=== PATIENT | male | born 1965 | race Caucasian/White ===

== ENCOUNTER 2017-06-25 11:58 | Emergency (ER) | payer BC, OTHER ==
[2017-06-25] MEDS ORDERED: Acetaminophen/HYDROcodone 325-5 MG Tab PO ONE (12:09)
[2017-06-25] MEDS ORDERED: Diphtheria,Pertussis(Acell),Tetanus Vaccine 0.5 ML Syringe IM ONE (12:09)
--- NOTE | 2017-06-25 12:19 | EDM.PDOC ---
ED HPI GENERAL MEDICAL PROBLEM - General Stated Complaint: LEFT FOOT WORK RELATED INJURY Time Seen by Provider: 06/25/17 11:59 Source of Information: Reports: Patient History Limitations: Reports: No Limitations - History of Present Illness INITIAL COMMENTS - FREE TEXT/NARRATIVE: HISTORY AND PHYSICAL: History of present illness: Patient is a 52-year-old male who presents to the emergency room after stepping on a steel bre at work, that had punctured his boot and through his foot prior to arrival. He pulled the bre out per self prior to arrival. He has a puncture wound to the left lateral plantar surface (entrance) of the foot that exited to the top of the foot. Minimal bleeding noted at this time. He is ambulatory and weightbearing. Patient is unsure of his last tetanus booster. No previous injury or surgeries to the affected extremity. Review of systems: As per history of present illness and below otherwise all systems reviewed and negative. Past medical history: As per history of present illness and as reviewed below otherwise noncontributory. Surgical history: As per history of present illness and as reviewed below otherwise noncontributory. Social history: No reported history of drug or alcohol abuse. Family history: As per history of present illness and as reviewed below otherwise noncontributory. Physical exam: General: Nontoxic appearing 52-year-old male. Alert and oriented. Appears in no acute distress. HEENT: Atraumatic, normocephalic, pupils reactive, negative for conjunctival pallor or scleral icterus, mucous membranes moist, throat clear, neck supple, nontender, trachea midline. Lungs: Clear to auscultation, breath sounds equal bilaterally, chest nontender. Heart: S1S2, regular rate and rhythm Abdomen: Soft, nondistended, nontender. Negative for masses or hepatosplenomegaly. Negative for costovertebral tenderness. Pelvis: Stable nontender. Genitourinary: Deferred. Rectal: Deferred. Extremities: Puncture wound noted to the distal lateral plantar surface near the fourth digit (entrance) that appears to have gone straight through to the anterior surface of the foot (exit wound), negative for cords or calf pain. Capillary refill less than 3 seconds. Strong pedal pulse. Neurovascular unremarkable. Neuro: Awake, alert, oriented. Cranial nerves II through XII unremarkable. Cerebellum unremarkable. Motor and sensory unremarkable throughout. Exam nonfocal. Diagnostics: Foot x-ray Therapeutics: Tdap, [place] Bacitracin, nonstick dressing Impression: Foot injury, puncture wound Plan: 1. Please take your antibiotic as prescribed. Keep the wound clean and dry. Monitor for signs of infection as we discussed. 2. Pain medication has been prescribed to you areas do not take this while driving or needing to functioning at work as it may cause drowsiness. During daytime hours he may take Tylenol or ibuprofen as needed. Rest, ice, elevate the extremity over the next couple days to prevent swelling. 3. Follow-up with your primary care provider in the next 1-2 days. Return to the ED as needed and as discussed. Definitive disposition and diagnosis as appropriate pending reevaluation and review of above. Onset: Today Duration: Minutes: Location: Reports: Lower Extremity, Left Left Feet Pain Score (Numeric/FACES): 3 - Related Data Allergies Allergy/AdvReac Type Severity Reaction Status Date / Time No Known Allergies Allergy Verified 06/25/17 12:08 Home Meds: Home Meds Ibuprofen [Advil] 200 mg PO DAILY 06/25/17 [History] Review of Systems - Review of Systems Review Of Systems: ROS reveals no pertinent complaints other than HPI. ED EXAM, GENERAL - Physical Exam Exam: See Below (See dictation) Course - Vital Signs Last Recorded V/S: Last Vital Signs Temp 36.5 C 06/25/17 12:14 Pulse 98 06/25/17 12:14 Resp 18 06/25/17 12:14 BP 130/90 06/25/17 12:14 Pulse Ox 95 06/25/17 12:14 - Orders/Labs/Meds Orders: Active Orders 24 hr Category Date Time Status Communication Order [RC] STAT Care 06/25/17 12:42 Active Communication Order [RC] STAT Care 06/25/17 13:00 Active Vaccines to be Administered [RC] PER UNIT ROUTINE Care 06/25/17 12:09 Active Meds: Medications Discontinued Medications Generic Name Dose Route Start Last Admin Trade Name Freq PRN Reason Stop Dose Admin Hydrocodone Bitart/Acetaminophen 1 tab 06/25/17 12:09 06/25/17 12:20 [place] 325-5 Mg PO 06/25/17 12:10 1 tab ONETIME ONE Administration Bacitracin 1 dose 06/25/17 13:00 Bacitracin Oint 1 Gm TOP 06/25/17 13:01 ONETIME ONE Diphtheria/Tetanus/Acell Pertussis 0.5 ml 06/25/17 12:09 06/25/17 12:19 Adacel IM 06/25/17 12:10 0.5 ml .ONCE ONE Administration Departure - Departure Time of Disposition: 12:58 Disposition: Home, Self-Care 01 Clinical Impression: Puncture wound Injury of foot, left Qualifiers: Encounter type: initial encounter Qualified Code(s): S99.922A - Unspecified injury of left foot, initial encounter - Discharge Information Referrals: PCP,None [Primary Care Provider] - Additional Instructions: My general discharge The following information is given to patients seen in the emergency department who are being discharged to home. This information is to outline your options for follow-up care. We provide all patients seen in our emergency department with a follow-up referral. The need for follow-up, as well as the timing and circumstances, are variable depending upon the specifics of your emergency department visit. If you don't have a primary care physician on staff, we will provide you with a referral. We always advise you to contact your personal physician following an emergency department visit to inform them of the circumstance of the visit and for follow-up with them and/or the need for any referrals to a consulting specialist. The emergency department will also refer you to a specialist when appropriate. This referral assures that you have the opportunity for follow-up care with a specialist. All of these measure are taken in an effort to provide you with optimal care, which includes your follow-up. Under all circumstances we always encourage you to contact your private physician who remains a resource for coordinating your care. When calling for follow-up care, please make the office aware that this follow-up is from your recent emergency room visit. If for any reason you are refused follow-up, please contact the [facility] Emergency Department at and asked to speak to the emergency department charge nurse. [facility] [address] [place] [id number] 1. Please take your antibiotic as prescribed. Keep the wound clean and dry. Monitor for signs of infection as we discussed. 2. Pain medication has been prescribed to you, please do not take this while driving or needing to functioning at work as it may cause drowsiness (it is a narcotic pain medication). During daytime hours you may take Tylenol or ibuprofen as needed. Rest, ice, elevate the extremity over the next couple days to prevent swelling and decrease pain. 3. Follow-up with your primary care provider in the next 1-2 days. Return to the ED as needed and as discussed. - My Orders Last 24 Hours: My Active Orders 06/25/17 12:09 Vaccines to be Administered [RC] PER UNIT ROUTINE 06/25/17 12:42 Communication Order [RC] STAT 06/25/17 13:00 Communication Order [RC] STAT - Assessment/Plan Last 24 Hours: My Active Orders 06/25/17 12:09 Vaccines to be Administered [RC] PER UNIT ROUTINE 06/25/17 12:42 Communication Order [RC] STAT 06/25/17 13:00 Communication Order [RC] STAT
--- NOTE | 2017-06-25 12:57 | CR ---
EXAMINATION: Left foot HISTORY: Pain COMPARISON: None TECHNIQUE: 2 views FINDINGS/IMPRESSION: There is no acute osseous abnormality, dislocation, or fracture. Bone mineraliza tion and joint spaces appear normal. No focal soft tissue swelling.
[2017-06-25] MEDS ORDERED: Bacitracin Oint 1 GM U/D Packet TOP ONE (13:00)
== END 2017-06-25 13:28 | disposition home or self-care (01) ==
LOC: MW.ED 11:58
DX: S91.332A Puncture wound without foreign body, left foot, initial encounter (principal); Z23 Encounter for immunization; W45.8XXA Other foreign body or object entering through skin, initial encounter
CPT/HCPCS: 73620; 90471; 90715; 99283; A9270; 99282

== ENCOUNTER 2018-01-28 12:18 | Emergency (ER) | payer BC ==
[2018-01-28] MEDS ORDERED: Sodium Chloride 0.9% 1,000 ML IV ONE (12:23)
[2018-01-28] MEDS ORDERED: Ondansetron 4 MG/2 ML SDV IVPUSH ONE (12:23)
[2018-01-28] MEDS ORDERED: Ketorolac 30 MG/ML SDV IVPUSH ONE (12:23)
--- NOTE | 2018-01-28 12:25 | EDM.PDOC ---
ED HPI GENERAL MEDICAL PROBLEM - General Chief Complaint: Abdominal Pain Stated Complaint: LEFT SIDE ABDOMINAL AND LOWER BACK PAIN Time Seen by Provider: 01/28/18 12:24 Source of Information: Reports: Patient - History of Present Illness INITIAL COMMENTS - FREE TEXT/NARRATIVE: HISTORY AND PHYSICAL: History of present illness: Patient presents with left-sided abdominal pain radiating to the flank and groin which began acutely one hour prior to arrival no fever nausea vomiting chills sweats [] Review of systems: As per history of present illness and below otherwise all systems reviewed and negative. Past medical history: As per history of present illness and as reviewed below otherwise noncontributory. Surgical history: As per history of present illness and as reviewed below otherwise noncontributory. Social history: No reported history of drug or alcohol abuse. Family history: As per history of present illness and as reviewed below otherwise noncontributory. Physical exam: HEENT: Atraumatic, normocephalic, pupils reactive, negative for conjunctival pallor or scleral icterus, mucous membranes moist, throat clear, neck supple, nontender, trachea midline. Lungs: Clear to auscultation, breath sounds equal bilaterally, chest nontender. Heart: S1S2, regular, negative for clicks, rubs, or JVD. Abdomen: Soft, nondistended, nontender. Negative for masses or hepatosplenomegaly. Negative for costovertebral tenderness. Pelvis: Stable nontender. Genitourinary: Deferred. Rectal: Deferred. Extremities: Atraumatic, negative for cords or calf pain. Neurovascular unremarkable. Neuro: Awake, alert, oriented. Cranial nerves II through XII unremarkable. Cerebellum unremarkable. Motor and sensory unremarkable throughout. Exam nonfocal. Diagnostics: [CBC CMP troponin lipase UA with culture ]CT abdomen pelvis no contrast Therapeutics: [Liter normal saline bolus Zofran 8 mg IV Toradol 30 mg IV ]Morphine 2 mg IV Lyndon Zofran Flomax Impression :2 Millimeter ureteral stone defnitive disposition and diagnosis as appropriate pending reevaluation and review of above. Left Lower abdomen Pain Score (Numeric/FACES): 9 - Related Data Allergies Allergy/AdvReac Type Severity Reaction Status Date / Time No Known Allergies Allergy Verified 01/28/18 12:30 Home Meds: Home Meds Ibuprofen [Advil] 2 tab PO QPM 06/25/17 [History] Past Medical History - Past Health History Medical/Surgical History: Denies Medical/Surgical History Social & Family History - Caffeine Use Caffeine Use: Reports: Coffee, Tea ED ROS GENERAL - Review of Systems Review Of Systems: See Below ED EXAM, GENERAL - Physical Exam Exam: See Below Course - Vital Signs Last Recorded V/S: Last Vital Signs Temp 96.7 F 01/28/18 12:33 Pulse 58 L 01/28/18 12:33 Resp 16 01/28/18 12:33 BP 170/88 H 01/28/18 12:33 Pulse Ox 98 01/28/18 12:33 - Orders/Labs/Meds Orders: Active Orders 24 hr Category Date Time Status CULTURE URINE [RM] Stat Lab 01/28/18 14:05 Received UA W/MICROSCOPIC [URIN] Stat Lab 01/28/18 14:05 Ordered Labs: Laboratory Tests 01/28/18 01/28/18 01/28/18 Range/Units 12:45 12:45 14:05 WBC 7.25 (4.0-11.0) K/uL RBC 5.10 (4.50-5.90) M/uL Hgb 16.0 (13.0-17.0) g/dL Hct 43.8 (38.0-50.0) % MCV 85.9 (80.0-98.0) fL MCH 31.4 (27.0-32.0) pg MCHC 36.5 (31.0-37.0) g/dL RDW Std Deviation 39.6 (28.0-62.0) fl RDW Coeff of Silvio 13 (11.0-15.0) % Plt Count 306 (150-400) K/uL MPV 9.90 (7.40-12.00) fL Neut % (Auto) 53.3 (48.0-80.0) % Lymph % (Auto) 35.4 (16.0-40.0) % [place] % (Auto) 8.4 (0.0-15.0) % Eos % (Auto) 2.6 (0.0-7.0) % Baso % (Auto) 0.3 (0.0-1.5) % Neut # (Auto) 3.9 (1.4-5.7) K/uL Lymph # (Auto) 2.6 H (0.6-2.4) K/uL [place] # (Auto) 0.6 (0.0-0.8) K/uL Eos # (Auto) 0.2 (0.0-0.7) K/uL Baso # (Auto) 0.0 (0.0-0.1) K/uL Nucleated RBC % 0.0 /100WBC Nucleated RBCs # 0 K/uL Sodium 141 (136-148) mmol/L Potassium 3.8 (3.5-5.1) mmol/L Chloride 107 (98-107) mmol/L Carbon Dioxide 25.5 (21.0-32.0) mmol/L BUN 24 H (7.0-18.0) mg/dL Creatinine 1.2 (0.8-1.3) mg/dL Est Cr Clr Drug Dosing 71.82 mL/min Estimated GFR (MDRD) > 60.0 ml/min Glucose 150 H (74-106) mg/dL Calcium 9.3 (8.5-10.1) mg/dL Total Bilirubin 0.6 (0.2-1.0) mg/dL AST 24 (15-37) IU/L ALT 46 (14-63) IU/L Alkaline Phosphatase 54 (46-116) U/L Troponin I < 0.050 (0.000-0.056) ng/mL Total Protein 7.5 (6.4-8.2) g/dL Albumin 4.5 (3.4-5.0) g/dL Globulin 3.0 (2.0-3.5) g/dL Albumin/Globulin Ratio 1.5 (1.3-2.8) Lipase 218 (73-393) U/L Urine Color DARK YELLOW Urine Appearance SLT CLOUDY Urine pH 5.5 (5.0-8.0) Ur Specific Barry >= 1.030 (1.001-1.035) Urine Protein TRACE (NEGATIVE) mg/dL Urine Glucose (UA) NEGATIVE (NEGATIVE) mg/dL Urine Ketones NEGATIVE (NEGATIVE) mg/dL Urine Occult Blood LARGE H (NEGATIVE) Urine Nitrite NEGATIVE (NEGATIVE) Urine Bilirubin NEGATIVE (NEGATIVE) Urine Urobilinogen 0.2 (<2.0) EU/dL Ur Leukocyte Esterase NEGATIVE (NEGATIVE) Urine RBC 30-40 (0-2/HPF) Urine WBC 0-2 (0-5/HPF) Ur Epithelial Cells FEW (NONE-FEW) Urine Bacteria FEW (NEGATIVE) Urine Mucus MODERATE (NONE-MOD) Meds: Medications Discontinued Medications Generic Name Dose Route Start Last Admin Trade Name Kathy PRN Reason Stop Dose Admin Sodium Chloride 1,000 mls @ 999 mls/hr 01/28/18 12:23 01/28/18 12:46 Normal Saline IV 01/28/18 13:23 999 mls/hr STAT ONE Administration Ketorolac Tromethamine 30 mg 01/28/18 12:23 01/28/18 12:47 Toradol IVPUSH 01/28/18 12:24 30 mg ONETIME ONE Administration Methylprednisolone Sodium Succinate 125 mg 01/28/18 14:04 01/28/18 14:24 Solu-Medrol IVPUSH 01/28/18 14:05 125 mg ONETIME ONE Administration Morphine Sulfate 2 mg 01/28/18 14:17 01/28/18 14:24 Morphine IVPUSH 01/28/18 14:18 2 mg ONETIME ONE Administration Ondansetron HCl 8 mg 01/28/18 12:23 01/28/18 12:48 Zofran IVPUSH 01/28/18 12:24 8 mg ONETIME ONE Administration Tamsulosin HCl 0.8 mg 01/28/18 14:04 01/28/18 14:24 Flomax PO 01/28/18 14:05 0.8 mg NOW STA Administration Departure - Departure Time of Disposition: 15:16 Disposition: Home, Self-Care 01 Condition: Good Clinical Impression: Ureteral stone - Discharge Information Referrals: PCP,None [Primary Care Provider] - Forms: ED Department Discharge Additional Instructions: Medication as prescribed Filter urine collection equipment provided Return stone for pathology to either primary care or urologist phone numbers provided below [facility] emergency room if symptoms persist or worsen or new concerning symptoms develop [facility] - Urology [address] [place] [id number] [facility] - Primary Care [address] [place] [id number] The following information is given to patients seen in the emergency department who are being discharged to home. This information is to outline your options for follow-up care. We provide all patients seen in our emergency department with a follow-up referral. The need for follow-up, as well as the timing and circumstances, are variable depending upon the specifics of your emergency department visit. If you don't have a primary care physician on staff, we will provide you with a referral. We always advise you to contact your personal physician following an emergency department visit to inform them of the circumstance of the visit and for follow-up with them and/or the need for any referrals to a consulting specialist. The emergency department will also refer you to a specialist when appropriate. This referral assures that you have the opportunity for follow-up care with a specialist. All of these measure are taken in an effort to provide you with optimal care, which includes your follow-up. Under all circumstances we always encourage you to contact your private physician who remains a resource for coordinating your care. When calling for follow-up care, please make the office aware that this follow-up is from your recent emergency room visit. If for any reason you are refused follow-up, please contact the [facility] emergency department at and asked to speak to the emergency department charge nurse. - My Orders Last 24 Hours: My Active Orders 01/28/18 14:05 CULTURE URINE [RM] Stat UA W/MICROSCOPIC [URIN] Stat - Assessment/Plan Last 24 Hours: My Active Orders 01/28/18 14:05 CULTURE URINE [RM] Stat UA W/MICROSCOPIC [URIN] Stat
[2018-01-28 13:44] LABS: CHLORIDE,CL 107 mmol/L (98-107); SODIUM,NA 141 mmol/L (136-148)
--- NOTE | 2018-01-28 14:02 | CT ---
CT of the abdomen and pelvis without contrast. HISTORY: Pain TECHNIQUE: Axial CT images were obtained of the abdomen and pelvis without contrast. Coronal and sagi ttal reconstructions obtained. FINDINGS: The lung bases are clear, no pleural effusion. The liver, spleen, adrenal glands, and pancreas appear unremarkable for noncontrast examination. The gallbladder appears normal. There is no bulky retroperitoneal lymphadenopathy. No abdominal ascites. There is a tiny hiatal hernia. There is a 2 mm obstructing stone at the left ureterovesicular junction with mild to moderate proxima l hydronephrosis. Right kidney appears normal. The large and small bowel are normal in caliber without evidence of obstruction. The appendix appears normal. Mild diverticulosis without evidence of diverticulitis. There is no bulky pelvic lymphadenop athy. No free fluid. No free air. The urinary bladder appears normal. Tiny fat-containing umbilical h ernia. The visualized osseous structures appear normal. IMPRESSION: 1. There is a 2 mm obstructing stone in the distal left ureter with [id number] proximal hydrone phrosis. 2. Small hiatal hernia. 2. Mild diverticulosis without evidence of diverticulitis.
[2018-01-28] MEDS ORDERED: methylPREDNISolone Sodium Succinate 125 MG/2 ML SDV IVPUSH ONE (14:04)
[2018-01-28] MEDS ORDERED: Tamsulosin 0.4 MG Cap.ER PO STA (14:04)
[2018-01-28] MEDS ORDERED: Morphine 2 MG/ML Syringe IVPUSH ONE (14:17)
== END 2018-01-28 15:28 | disposition home or self-care (01) ==
LOC: MW.ED 12:18
DX: N13.2 Hydronephrosis with renal and ureteral calculous obstruction (principal)
CPT/HCPCS: 74176; 80053; 81001; 83690; 84484; 85025; 87086; 96361; 96374; 96375; 99284; A9270; J1885; J2270; J2405; J2930; J7040